=== PATIENT | male | born 1965 | race Hispanic/Latino ===

== ENCOUNTER 2024-04-09 06:40 | Observation (INO) | payer MEDICARE ==
[2024-04-05 12:45] LABS: BASOPHILS % 0.3 % (0.0-1.0); EOSINOPHILS # (AUTO) 0.1 (0.0-0.4); EOSINOPHILS % 0.9 % (0.0-6.0); HEMATOCRIT 37.2 % (38.2-49.6); HEMOGLOBIN 11.9 g/dL (14.0-18.0); LYMPHOCYTES # (AUTO) 1.5 (1.0-3.2); LYMPHOCYTES % 22.8 % (18.0-39.1); MEAN CORPUSCULAR HEMOGLOBIN 32.1 pg (28-32); MEAN CORPUSCULAR VOLUME 100.3 fL (81-99); MONOCYTES # (AUTO) 0.9 (0.2-0.8); MONOCYTES % 13.3 % (4.4-11.3); NEUTROPHILS # (AUTO) 4.1 (2.1-6.9); NEUTROPHILS % 62.5 % (38.7-80.0); PLATELET COUNT 238 x10e3/uL (140-360); RED BLOOD COUNT 3.71 x10e6/uL (4.3-5.7); RED CELL DISTRIBUTION WIDTH 13.2 % (11.7-14.4); WHITE BLOOD COUNT 6.49 x10e3/uL (4.8-10.8)
[2024-04-05 13:23] LABS: ANION GAP 16.1 mmol/L (8-16); CALCIUM 10.1 mg/dL (8.4-10.2); CREATININE, SERUM 1.15 mg/dL (0.72-1.25); POTASSIUM 4.1 mmol/L (3.5-5.1)
[~2024-04-09 06:40] MED LIST: LISINOPRIL-HCT1 EACH PO; MELOXICAM7.5 MG PO; MULTI-VITAMIN1 EACH PO; ULTRAM 50MG50 MG PO; VITAMIN D3 PO
[2024-04-09] MEDS: CEFAZOLIN SODIUM 2 GM ONE (07:12)
[2024-04-09] MEDS: DEXAMETHASONE SOD PHOS 10 MG/1 ML VIAL ONE (07:15)
[2024-04-09] MEDS ORDERED: MIDAZOLAM HCL 2 MG/2 ML VIAL ONE (07:15)
[2024-04-09] MEDS: GABAPENTIN 300 MG CAP ONE (07:15)
[2024-04-09] MEDS: CELECOXIB 200 MG CAP ONE (07:15)
[2024-04-09] MEDS: LACTATED RINGER'S 1,000 ML ONE (07:16)
[2024-04-09] MEDS ORDERED: PROPOFOL IV EMULSION 10 MG/ML 20 ML VIAL ONE (07:16)
[2024-04-09] MEDS ORDERED: FENTANYL CITRATE/PF 100MCG/2 ML INJ ONE (07:16)
[2024-04-09] MEDS ORDERED: EPINEPHRINE HCL 1:1000 1ML 1 MG/ML AMP ONE (07:18)
[2024-04-09] MEDS ORDERED: ROPIVACAINE/EPI/CLONIDINE/KET 50 ML SYRINGE INJ ONE (08:00)
[2024-04-09] MEDS ORDERED: PHENYLEPHRINE HCL 1% 10 MG/ML VIAL ONE (08:40)
[2024-04-09] MEDS ORDERED: DEXAMETHASONE SOD PHOS INJ 4 MG/ML SDV ONE (08:48)
[2024-04-09] MEDS ORDERED: DEXMEDETOMIDINE HCL 2 ML ONE (08:48)
[2024-04-09] MEDS ORDERED: GLYCOPYRROLATE INJ 0.2 MG/ML VIAL ONE (08:48)
[2024-04-09] MEDS ORDERED: ONDANSETRON HCL INJ 2MG/ML 2ML 2 MG/ML VIAL ONE (08:48)
[2024-04-09] MEDS ORDERED: FAMOTIDINE 20 MG/2 ML VIAL IV ONE (08:48)
[2024-04-09] MEDS ORDERED: ACETAMINOPHEN 1000 MG/100 ML 100 ML IV ONE (09:05)
[2024-04-09] MEDS ORDERED: HYDROMORPHONE 2MG/ML ONE (09:09)
[2024-04-09] MEDS ORDERED: HYDROCODONE/APAP 5MG-325MG TAB PO PRN (09:45)
[2024-04-09] MEDS ORDERED: DIPHENHYDRAMINE HCL INJ 50 MG/ML VIAL IV PRN (09:45)
[2024-04-09] MEDS ORDERED: SODIUM CHLORIDE 0.9% 1000ML 1,000 ML IV SCH (09:45)
[2024-04-09] MEDS ORDERED: HYDROCODONE/APAP 7.5MG-325MG 1 EA TAB PO PRN (09:45)
[2024-04-09] MEDS ORDERED: ONDANSETRON HCL INJ 2MG/ML 2ML 2 MG/ML VIAL IV PRN (09:45)
[2024-04-09 09:55] VITALS: TEMP 98.9
[2024-04-09] MEDS: HYDROCODONE/APAP 7.5MG-325MG 1 EA TAB PO ONE (10:45)
[2024-04-09] MEDS ORDERED: ASPIRIN81 MG PO (13:19)
[2024-04-09 16:40] VITALS: BP 124/72; PULSE 62; RESP 16; O2SAT 100
[2024-04-09] MEDS ORDERED: CELECOXIB 100 MG CAP PO SCH (17:00)
[2024-04-09] MEDS ORDERED: DOCUSATE SODIUM 100 MG CAP PO PRN (17:00)
[2024-04-09] MEDS ORDERED: ASPIRIN 325 MG TAB PO SCH (17:00)
[2024-04-10] MEDS ORDERED: ACETAMINOPHEN 1000 MG/100 ML IV PRN (09:45)
== END 2024-04-09 17:00 | disposition home health service (06) ==
LOC: OR 06:40 → PACU V 09:43
PROVIDERS: ADMIT Specialist; ATTEND Specialist
DX: M16.11 Unilateral primary osteoarthritis, right hip (principal); G57.31 Lesion of lateral popliteal nerve, right lower limb; M21.371 Foot drop, right foot; I10 Essential (primary) hypertension; D64.9 Anemia, unspecified; Z98.1 Arthrodesis status; Z01.812 Encounter for preprocedural laboratory examination; Z79.899 Other long term (current) drug therapy
CPT/HCPCS: 27130; 36415; 72170; 80048; 85025; 86850; 86900; 97110; 97116; 97162; 97530 ×2; C1713 ×3; G0378; J0131; J0171; J0690; J1100 ×2; J1170; J1200; J2250; J2371; J2405; J2704; J3010; J7121; J7030